=== PATIENT | female | born 1960 | race African-American/Black ===

== ENCOUNTER 2022-09-15 07:09 | Day surgery (SDC) | payer BC, OTHER ==
[2022-09-15 07:25] VITALS: BMI 27.4
[2022-09-15 08:31] LABS: INR 1.03 (0.83-1.09); PROTHROMBIN TIME (PATIENT) 11.8 SEC (9.7-13.0)
[2022-09-15 08:33] LABS: HEMATOCRIT 36.9 % (32.4-45.2); HEMOGLOBIN 12.3 G/dL (10.7-15.3); MCH 30.5 pg (25.7-33.7); MCHC 33.2 g/dl (32.0-36.0); MEAN CELL VOLUME 91.9 fl (80-96); MEAN PLT VOLUME 7.7 fl (7.5-11.1); PLATELET COUNT 331.5 10^3/uL (134-434); RBC 4.02 10^6/uL (3.60-5.2); RDW 13.9 % (11.6-15.6); WHITE BLOOD COUNT 5.4 10^3/uL (4.0-10.8)
[2022-09-15 08:34] LABS: ACTIVATED PTT 31.1 SECONDS (25.2-36.5)
[2022-09-15 08:39] LABS: BILIRUBIN,TOTAL 0.3 mg/dl (0.2-1); CALCIUM 9.4 mg/dl (8.5-10); CREATININE 0.7 mg/dl (0.55-1.3)
[2022-09-15 08:50] LABS: PLATELET ESTIMATE ADEQUATE
[2022-09-15] MEDS ORDERED: ceFAZolin SODIUM 1 GM VIAL ONE ×2 (08:51→09:33)
[2022-09-15] MEDS ORDERED: GENTAMICIN SO4 80 MG/2 ML VIAL ONE (08:51)
[2022-09-15] MEDS ORDERED: PROMETHAZINE HCL 25 MG/1 ML VIAL IVPB PRN (09:27)
[2022-09-15] MEDS ORDERED: ONDANSETRON 4 MG/2 ML VIAL IVPUSH PRN (09:27)
[2022-09-15] MEDS ORDERED: LACTATED RINGERS SOLUTION 1,000 ML IV SCH ×2 (09:30→11:45)
[2022-09-15] MEDS ORDERED: MIDAZOLAM HCL 2 MG/2 ML SINGLE DOSE VIAL ONE (09:31)
[2022-09-15] MEDS ORDERED: PROPOFOL 20 ML ONE (09:32)
[2022-09-15] MEDS ORDERED: ROCURONIUM BROMIDE 50 MG/5 ML SYRINGE ONE (09:32)
[2022-09-15] MEDS ORDERED: GLYCOPYRROLATE 0.2 MG/1 ML VIAL ONE ×2 (09:33→11:10)
[2022-09-15] MEDS ORDERED: METOPROLOL TARTRATE 5 MG/5 ML VIAL ONE (09:33)
[2022-09-15] MEDS ORDERED: SODIUM CHLORIDE 0.9% P/F 10 ML VIAL IJ ONE (09:33)
[2022-09-15] MEDS ORDERED: ONDANSETRON 4 MG/2 ML VIAL ONE ×2 (10:07→12:33)
[2022-09-15] MEDS ORDERED: DEXAMETHASONE SOD PHOSPHATE 4 MG/1 ML VIAL ONE (10:07)
[2022-09-15] MEDS ORDERED: NEOSTIGMINE METHYLSULFATE 0.5 MG/1 ML - 10 ML MDV ONE (11:20)
[2022-09-15] MEDS ORDERED: ONDANSETRON 4 MG/2 ML VIAL IVPB PRN (11:43)
[2022-09-15] MEDS ORDERED: oxyCODONE HCL 5 MG TABLET PO PRN (11:43)
[2022-09-15] MEDS ORDERED: ACETAMINOPHEN 1000 MG/100 ML BAG IVPB ONE ×2 (11:50→13:09)
[2022-09-15] MEDS ORDERED: ACETAMINOPHEN INJECTION 100 ML IVPB ONE (11:55)
[2022-09-15] MEDS ORDERED: hydrALAZINE HCL 20 MG/ML VIAL IVPUSH PRN (12:01)
[2022-09-15] MEDS ORDERED: FENTANYL CITRATE/PF 50 MCG/ML VIAL ONE (12:34)
[2022-09-15 14:28] VITALS: RESP 16
[2022-09-15 15:32] VITALS: TEMP 97.5
[2022-09-15 16:02] VITALS: PULSE 75
[2022-09-15 17:49] VITALS: BP 120/72
== END 2022-09-15 18:00 | disposition home or self-care (01) ==
LOC: FER 07:09 → FASUSAT 08:38
PROVIDERS: ATTEND Plastic Surgery
PROC: 0HCU0ZZ Extirpation of Matter from Left Breast, Open Approach (ICD-10-PCS; 2022-09-15)
PROC: 03LY0ZZ Occlusion of Upper Artery, Open Approach (ICD-10-PCS; 2022-09-15)
PROC: 0HNT0ZZ Release Right Breast, Open Approach (ICD-10-PCS; principal; 2022-09-15 10:22)
DX: L76.32 Postprocedural hematoma of skin and subcutaneous tissue following other procedure (principal); N64.4 Mastodynia; Y83.8 Other surgical procedures as the cause of abnormal reaction of the patient, or of later complication, without mention of misadventure at the time of the procedure; Y82.8 Other medical devices associated with adverse incidents; Y92.89 Other specified places as the place of occurrence of the external cause
CPT/HCPCS: 0241U-QW; 36415; 80053; 85027; 85610; 85730; 86850; 86900; 86901; 93005; 94760; 99285-25